=== PATIENT | female | born 1955 | race Caucasian/White ===

== ENCOUNTER 2018-07-12 07:52 | Inpatient (IN) | payer OTHER ==
[~2018-07-12] VITALS: Ht 157.5 cm; Wt 103.9 kg
[2018-07-12 07:55] VITALS: BP_SYST 157
[2018-07-12] MEDS ORDERED: KETOROLAC TROMETHAMINE 15 MG VIAL IVP ONE (08:45)
[2018-07-12] MEDS ORDERED: NACL 0.9% 1,000 ML IV ONE (08:45)
[2018-07-12 09:11] LABS: CALCIUM 9.6 mg/dL (8.4-11.0); CREATININE 0.9 mg/dL (0.55-1.30); POTASSIUM 3.2 mmol/L (3.5-5.1)
[2018-07-12 09:12] LABS: BILIRUBIN,URINE NEGATIVE (NEGATIVE); BLOOD, URINE NEGATIVE (NEGATIVE); CLARITY/URINE SL HAZY (CLEAR); COLOR,URINE YELLOW (YELLOW); GLUCOSE,URINE NEGATIVE (NEGATIVE); KETONES,URINE NEGATIVE (NEGATIVE); LEUKOCYTE ESTERASE ,URINE 3+ (NEGATIVE); NITRITE, URINE NEGATIVE (NEGATIVE); PH,URINE 7.5 (5.0-8.0); PROTEIN URINE NEGATIVE (NEGATIVE); UROBILINOGEN,URINE 0.2 (0.2-1.0)
[2018-07-12 09:16] LABS: ALBUMIN 3.7 g/dL (3.4-4.8); TOTAL BILIRUBIN 0.6 mg/dL (0.0-1.0)
[2018-07-12 09:26] LABS: BACTERIA,URINE FEW /HPF (None Seen); MUCUS,URINE None Seen /LPF (None Seen); RBC,URINE 0-3 /HPF (0-3); YEAST,URINE None Seen /HPF (None Seen)
[2018-07-12 09:29] LABS: BARBITURATE, URINE NEGATIVE (NEG <=200); BENZODIAZEPINE, URINE POSITIVE (NEG <=150); CANNABINOID, URINE NEGATIVE (NEG <=50); COCAINE, URINE NEGATIVE (NEG <=150); METHAMPHETAMINES SCREEN,URINE NEGATIVE (NEG <=500); OPIATE, URINE POSITIVE (NEG <=100); PHENCYCLIDINE SCREEN,URINE NEGATIVE (NEG <=25); UR TRICYCLIC ANTIDEPRESSANTS NEGATIVE (NEG <=300); URINE AMPHETAMINE NEGATIVE (NEG <=500); URINE METHADONE NEGATIVE (NEG <=200); URINE OXYCODONE SCREEN NEGATIVE (NEG <=100); URINE PROPOXYPHENE SCREEN NEGATIVE (NEG <=300)
[2018-07-12] MEDS ORDERED: ONDANSETRON HCL 4 MG/2 ML VIAL IVP ONE (09:30)
[2018-07-12 09:45] LABS: HEMATOCRIT 38.4 % (36-48); RED BLOOD CELL COUNT(AUTO) 4.73 MIL/uL (4.2-6.2); WHITE BLOOD COUNT (AUTO) 12.1 K/uL (4.8-10.8)
[2018-07-12 09:46] LABS: EOSINOPHILS % (AUTO) 2.1 % (0.0-4.0); LYMPHOCYTES % (AUTO) 19.1 % (20.5-51.5); MEAN CORPUSCULAR HEMOGLOBIN 28 pg (27-31); MEAN CORPUSCULAR HGB CONC 34 % (32-36); MEAN CORPUSCULAR VOLUME 81 fL (79.0-98.0); MONOCYTES % (AUTO) 6.9 % (1.7-9.3); NEUTROPHILS % (AUTO) 71.9 % (40.0-70.0); PLATELET COUNT (AUTO) 335 K/uL (130-430); RED CELL DISTRIBUTION WIDTH 13.4 % (9.0-15.0)
[2018-07-12 09:47] LABS: EOSINOPHILS # (AUTO) 0.3 K/uL (0.0-0.4); LYMPHOCYTES # (AUTO) 2.3 K/uL (1.0-5.5); MONOCYTES # (AUTO) 0.8 K/uL (0.0-1.0); NEUTROPHILS # (AUTO) 8.7 K/uL (1.8-7.7)
[2018-07-12 11:04] VITALS: BP_SYST 129
[2018-07-12] MEDS ORDERED: LORA1TAB PO (11:57)
[2018-07-12] MEDS ORDERED: HYDR-3610 PO (11:57)
[2018-07-12 12:00] VITALS: BP_SYST 137
[2018-07-12] MEDS ORDERED: GLIP2.5T9 PO (12:33)
[2018-07-12] MEDS ORDERED: HYDR-2489 PO (12:33)
[2018-07-12] MEDS ORDERED: GLUXR500 PO (12:33)
[2018-07-12] MEDS ORDERED: LIP10 PO (12:33)
[2018-07-12] MEDS ORDERED: MORP30TA59 PO (12:33)
[2018-07-12] MEDS ORDERED: TIZA4TAB11 PO (12:33)
[2018-07-12] MEDS ORDERED: MIRT30TA7 PO (12:33)
[2018-07-12] MEDS ORDERED: HYDR25TA4 PO (12:33)
[2018-07-12] MEDS ORDERED: NADO40TA18 PO (12:33)
[2018-07-12] MEDS ORDERED: ESCI20TA PO (12:33)
[2018-07-12] MEDS ORDERED: FLUR30CA13 PO (12:33)
[2018-07-12] MEDS ORDERED: MORP15TA60 PO (12:33)
[2018-07-12 15:05] VITALS: BP_SYST 146
[2018-07-12] MEDS: POTASSIUM CHLORIDE 40 MEQ in NACL 0.9% 1,000 ML IV SCH (17:13)
[2018-07-12] MEDS ORDERED: DEXTROSE 50% JECT 50 ML DISP.SYRIN IVP PRN (19:30)
[2018-07-12 20:00] VITALS: BP_SYST 139
[2018-07-12] MEDS: METOPROLOL TARTRATE 50 MG TABLET PO SCH (21:50)
[2018-07-12] MEDS: KETOROLAC TROMETHAMINE 30 MG VIAL IVP PRN (21:52)
[2018-07-13] MEDS: POTASSIUM CHLORIDE 40 MEQ in NACL 0.9% 1,000 ML IV SCH ×3 (00:25→23:21)
[2018-07-13 01:37] VITALS: BP_SYST 133
[2018-07-13] MEDS: KETOROLAC TROMETHAMINE 30 MG VIAL IVP PRN ×3 (05:00→18:35)
[2018-07-13 06:49] LABS: ALBUMIN 3.1 g/dL (3.4-4.8); CREATININE 0.96 mg/dL (0.55-1.30); POTASSIUM 3.6 mmol/L (3.5-5.1); TOTAL BILIRUBIN 0.4 mg/dL (0.0-1.0)
[2018-07-13 08:00] VITALS: BP_SYST 142
[2018-07-13 08:26] LABS: BASOPHILS % (AUTO) 0.1 % (0.0-2.0); EOSINOPHILS # (AUTO) 0.3 K/uL (0.0-0.4); EOSINOPHILS % (AUTO) 3.7 % (0.0-4.0); HEMATOCRIT 32.8 % (36-48); HEMOGLOBIN 11.4 g/dL (12.0-16.0); LYMPHOCYTES % (AUTO) 23.3 % (20.5-51.5); MEAN CORPUSCULAR HEMOGLOBIN 28 pg (27-31); MEAN CORPUSCULAR HGB CONC 35 % (32-36); MEAN CORPUSCULAR VOLUME 82 fL (79.0-98.0); MONOCYTES # (AUTO) 0.6 K/uL (0.0-1.0); MONOCYTES % (AUTO) 6.5 % (1.7-9.3); NEUTROPHILS # (AUTO) 5.8 K/uL (1.8-7.7); NEUTROPHILS % (AUTO) 66.4 % (40.0-70.0); PLATELET COUNT (AUTO) 462 K/uL (130-430); RED BLOOD CELL COUNT(AUTO) 4.01 MIL/uL (4.2-6.2); RED CELL DISTRIBUTION WIDTH 13.7 % (9.0-15.0); WHITE BLOOD COUNT (AUTO) 8.7 K/uL (4.8-10.8)
[2018-07-13] MEDS: ATORVASTATIN 10 MG TABLET PO SCH (08:40)
[2018-07-13] MEDS: CITALOPRAM HYDROBROMIDE 20 MG TABLET PO SCH (08:40)
[2018-07-13] MEDS: METOPROLOL TARTRATE 50 MG TABLET PO SCH ×2 (08:40→20:29)
[2018-07-13] MEDS: MIRTAZAPINE 15 MG TABLET PO SCH (08:41)
[2018-07-13] MEDS: INSULIN REGULAR, HUMAN 100 UNITS/ML, 10 ML VIAL (novoLIN R) SUBCUT PRN (11:38)
[2018-07-13 13:19] VITALS: BP_SYST 142
[2018-07-13 17:08] VITALS: BP_SYST 151
[2018-07-13] MEDS ORDERED: IPRATROPIUM BROM 0.5 MG/2.5 ML VIAL.NEB (ATROVENT) INH ONE (19:59)
[2018-07-13] MEDS ORDERED: ALBUTEROL SULFATE 0.083% 2.5 MG/3 ML VIAL.NEB INH ONE (19:59)
[2018-07-13 20:00] VITALS: BP_SYST 147
[2018-07-13 23:57] VITALS: BP_SYST 132
[2018-07-14] MEDS: KETOROLAC TROMETHAMINE 30 MG VIAL IVP PRN ×3 (00:27→15:14)
[2018-07-14] MEDS: INSULIN REGULAR, HUMAN 100 UNITS/ML, 10 ML VIAL (novoLIN R) SUBCUT PRN ×2 (05:06→17:51)
[2018-07-14 07:19] LABS: BASOPHILS % (AUTO) 0.2 % (0.0-2.0); EOSINOPHILS # (AUTO) 0.2 K/uL (0.0-0.4); EOSINOPHILS % (AUTO) 2.1 % (0.0-4.0); HEMOGLOBIN 11.5 g/dL (12.0-16.0); LYMPHOCYTES # (AUTO) 1.7 K/uL (1.0-5.5); LYMPHOCYTES % (AUTO) 19.1 % (20.5-51.5); MEAN CORPUSCULAR HEMOGLOBIN 27 pg (27-31); MEAN CORPUSCULAR HGB CONC 34 % (32-36); MEAN CORPUSCULAR VOLUME 82 fL (79.0-98.0); MONOCYTES # (AUTO) 0.5 K/uL (0.0-1.0); MONOCYTES % (AUTO) 6.2 % (1.7-9.3); NEUTROPHILS # (AUTO) 6.3 K/uL (1.8-7.7); NEUTROPHILS % (AUTO) 72.4 % (40.0-70.0); PLATELET COUNT (AUTO) 261 K/uL (130-430); RED BLOOD CELL COUNT(AUTO) 4.18 MIL/uL (4.2-6.2); RED CELL DISTRIBUTION WIDTH 13.9 % (9.0-15.0); WHITE BLOOD COUNT (AUTO) 8.7 K/uL (4.8-10.8)
[2018-07-14 07:42] LABS: ALBUMIN 3.2 g/dL (3.4-4.8); CALCIUM 9.2 mg/dL (8.4-11.0); CREATININE 0.86 mg/dL (0.55-1.30); POTASSIUM 4.9 mmol/L (3.5-5.1); TOTAL BILIRUBIN 0.4 mg/dL (0.0-1.0)
[2018-07-14 08:00] VITALS: BP_SYST 163
[2018-07-14] MEDS: CITALOPRAM HYDROBROMIDE 20 MG TABLET PO SCH (08:36)
[2018-07-14] MEDS: MIRTAZAPINE 15 MG TABLET PO SCH (08:37)
[2018-07-14] MEDS: ATORVASTATIN 10 MG TABLET PO SCH (08:37)
[2018-07-14] MEDS: METOPROLOL TARTRATE 50 MG TABLET PO SCH (08:47)
[2018-07-14 12:00] VITALS: BP_SYST 150
[2018-07-14] MEDS: POTASSIUM CHLORIDE 40 MEQ in NACL 0.9% 1,000 ML IV SCH (12:10)
[2018-07-14 16:00] VITALS: BP_SYST 149
[2018-07-14 18:04] VITALS: BP_SYST 149
== END 2018-07-14 18:50 | DRG 917 ==
LOC: SED 07:52 → SMU 10:19 → STU 11:02
PROVIDERS: ADMIT Internal Medicine Hospice and Palliative Medicine; ATTEND Internal Medicine Hospice and Palliative Medicine
DX: T42.4X1A Poisoning by benzodiazepines, accidental (unintentional), initial encounter (principal); G92 Toxic encephalopathy; E87.1 Hypo-osmolality and hyponatremia; T40.601A Poisoning by unspecified narcotics, accidental (unintentional), initial encounter; E87.5 Hyperkalemia; D64.9 Anemia, unspecified; E11.9 Type 2 diabetes mellitus without complications; E66.9 Obesity, unspecified; E78.5 Hyperlipidemia, unspecified; G47.33 Obstructive sleep apnea (adult) (pediatric); E87.6 Hypokalemia; G89.29 Other chronic pain; I10 Essential (primary) hypertension; K59.00 Constipation, unspecified; M54.9 Dorsalgia, unspecified; Z79.899 Other long term (current) drug therapy; Z79.84 Long term (current) use of oral hypoglycemic drugs; Z90.49 Acquired absence of other specified parts of digestive tract
CPT/HCPCS: 36415; 80053; 80307; 81000-TC; 82962; 83690-TC; 83735-TC; 84100-TC; 85025; 87086; 96361; 96374; 96375; 99285; J1885; J2405; J3480; J7030; J7613

== ENCOUNTER 2019-06-13 11:26 | Emergency (ER) | payer OTHER ==
[~2019-06-13] VITALS: Ht 157.5 cm; Wt 90.7 kg
[~2019-06-13 11:26] MED LIST: ESCI20TA PO; FLUR30CA13 PO; GLIP2.5T9 PO; GLUXR500 PO; HYDR-3610 PO; HYDR-4274 PO; HYDR25TA4 PO; LIP10 PO; LORA1TAB PO; MIRT30TA7 PO; MORP15TA60 PO; MORP30TA59 PO; NADO40TA18 PO; TIZA4TAB11 PO
--- NOTE | 2019-06-13 11:26 | NUR ---
Patient to ER bed 2 to gown for evaluation. Side rails up. Report given to MAN Nunez.
--- NOTE | 2019-06-13 11:27 | NUR ---
Patient brought in by EMS. Patient has had increased generalized weakness over the past few days, she was sitting on the toilet and fell over. Patient denies pain at this time, left sided weakness noted.
--- NOTE | 2019-06-13 11:28 | NUR ---
EDIS Schaefer at bedside examining patient.
[2019-06-13 11:30] VITALS: BP_SYST 128
[2019-06-13] MEDS ORDERED: NS 1000 ML IV.SOLN IV ONE (11:45)
--- NOTE | 2019-06-13 11:47 | NUR ---
Patient transported to radiology via gurney, accompanied by lift team technician.
--- NOTE | 2019-06-13 12:01 | NUR ---
Returned from radiology, back to [facility].
[2019-06-13] MEDS ORDERED: FLUMAZENIL 0.1 MG/ML IVP ONE ×2 (12:30→12:36)
--- NOTE | 2019-06-13 12:30 | NUR ---
Called radiology, awaiting for CT results, per radiology awaiting for MD to read.
[2019-06-13 12:48] LABS: BILIRUBIN,URINE 1+ (NEGATIVE); BLOOD, URINE NEGATIVE (NEGATIVE); CLARITY/URINE CLEAR (CLEAR); COLOR,URINE YELLOW (YELLOW); GLUCOSE,URINE NEGATIVE (NEGATIVE); KETONES,URINE NEGATIVE (NEGATIVE); LEUKOCYTE ESTERASE ,URINE NEGATIVE (NEGATIVE); NITRITE, URINE NEGATIVE (NEGATIVE); PROTEIN URINE NEGATIVE (NEGATIVE); UROBILINOGEN,URINE 0.2 (0.2-1.0)
--- NOTE | 2019-06-13 12:49 | NUR ---
Spoke with Rebekah from [facility] rad department for CT scan of the head results.
[2019-06-13 12:54] LABS: BASOPHILS # (AUTO) 0.1 K/uL (0.0-0.2); BASOPHILS % (AUTO) 1.1 % (0.0-2.0); EOSINOPHILS # (AUTO) 0.2 K/uL (0.0-0.4); HEMATOCRIT 38.7 % (36-48); HEMOGLOBIN 12.8 g/dL (12.0-16.0); LYMPHOCYTES # (AUTO) 2.8 K/uL (1.0-5.5); LYMPHOCYTES % (AUTO) 25.9 % (20.5-51.5); MEAN CORPUSCULAR HEMOGLOBIN 29 pg (27-31); MEAN CORPUSCULAR HGB CONC 33 % (32-36); MEAN CORPUSCULAR VOLUME 88 fL (79.0-98.0); MONOCYTES # (AUTO) 0.8 K/uL (0.0-1.0); MONOCYTES % (AUTO) 7.7 % (1.7-9.3); NEUTROPHILS # (AUTO) 6.8 K/uL (1.8-7.7); NEUTROPHILS % (AUTO) 63.3 % (40.0-70.0); PLATELET COUNT (AUTO) 203 K/uL (130-430); RED BLOOD CELL COUNT(AUTO) 4.38 MIL/uL (4.2-6.2); RED CELL DISTRIBUTION WIDTH 14.7 % (9.0-15.0); WHITE BLOOD COUNT (AUTO) 10.7 K/uL (4.8-10.8)
[2019-06-13 12:59] LABS: BARBITURATE, URINE NEGATIVE (NEG <=200); METHAMPHETAMINES SCREEN,URINE NEGATIVE (NEG <=500); URINE AMPHETAMINE NEGATIVE (NEG <=500)
[2019-06-13 13:00] LABS: BENZODIAZEPINE, URINE POSITIVE (NEG <=150); CANNABINOID, URINE NEGATIVE (NEG <=50); COCAINE, URINE NEGATIVE (NEG <=150); OPIATE, URINE NEGATIVE (NEG <=100); PHENCYCLIDINE SCREEN,URINE NEGATIVE (NEG <=25); UR TRICYCLIC ANTIDEPRESSANTS NEGATIVE (NEG <=300); URINE METHADONE NEGATIVE (NEG <=200); URINE OXYCODONE SCREEN POSITIVE (NEG <=100); URINE PROPOXYPHENE SCREEN NEGATIVE (NEG <=300)
--- NOTE | 2019-06-13 13:15 | NUR ---
Patient to be transferred to [facility]. Is being transferred due to higher level of care. Receiving facility has accepting physician and available space. ER physician has signed transfer form. Patient or responsible libertarian has agreed to transfer and signed form. Patient belongings inventoried and will be sent with patient. Copy of nursing notes, lab reports, EKG, Physicians Orders and X-rays to be sent with patient. Report called to Hiram at receiving facility. Receiving physician is Dr. Marrero. [facility] ambulance service has been called for transfer. ETA is [id number].
[2019-06-13 13:20] LABS: INR 1.1 (0.8-1.2); PROTHROMBIN TIME 11.5 SECS (9.5-12.5)
[2019-06-13 13:21] LABS: CALCIUM 8.7 mg/dL (8.4-11.0); CREATININE 0.91 mg/dL (0.55-1.30); POTASSIUM 3.7 mmol/L (3.5-5.1)
[2019-06-13] MEDS ORDERED: DEXTROSE 50% JECT 50 ML DISP.SYRIN IVP ONE (13:30)
--- NOTE | 2019-06-13 13:34 | NUR ---
[facility] on site to transfer patient. Hiram at [facility] notified at [phone].
[2019-06-13 13:36] VITALS: BP_SYST 143
[2019-06-13] MEDS ORDERED: DEXTROSE 50% JECT 50 ML DISP.SYRIN ONE (13:42)
[2019-06-13 13:48] LABS: TOTAL BILIRUBIN 0.4 mg/dL (0.0-1.0)
[2019-06-13 13:49] LABS: ALBUMIN 3.4 g/dL (3.4-4.8)
== END 2019-06-13 13:36 | disposition short-term general hospital (02) ==
LOC: SED 11:26
DX: I63.9 Cerebral infarction, unspecified (principal); E11.649 Type 2 diabetes mellitus with hypoglycemia without coma; F13.90 Sedative, hypnotic, or anxiolytic use, unspecified, uncomplicated; F11.99 Opioid use, unspecified with unspecified opioid-induced disorder; G89.29 Other chronic pain; M54.9 Dorsalgia, unspecified; I10 Essential (primary) hypertension; E78.00 Pure hypercholesterolemia, unspecified; Z79.899 Other long term (current) drug therapy
CPT/HCPCS: 36415; 70450; 71045; 80053; 80307; 81003; 82962; 83605; 84484; 85025; 85610; 85730; 87040; 87086; 93005; 96361; 96374; 96375; 99291; J3490; J7030